=== PATIENT | female | born 1970 | race Caucasian/White ===

== ENCOUNTER 2016-05-21 19:28 | Observation (INO) | payer BC, OTHER ==
[~2016-05-21] VITALS: Ht 157.5 cm; Wt 79.0 kg
[2016-05-21] VITALS (12 sets, daily range): BP systolic 119–167; BP diastolic 67–89; PULSE 76–86; RESP 18–20; TEMP 98.3; O2SAT 96–99
[~2016-05-21 19:28] MED LIST: BACT PO; DIOV80TA4 PO; DOXY100T PO; OMEP20TA OR; VYTO10TA32 PO
[2016-05-21] MEDS ORDERED: ASPIRIN 81 MG CHEW TAB PO ONE (19:45)
[2016-05-21] MEDS ORDERED: PANTOPRAZOLE SODIUM 40 MG VIAL IV PUSH ONE (19:45)
[2016-05-21] MEDS ORDERED: SODIUM CHLORID 0.9% 500 ML INJ 500 ML IV ONE (19:45)
[2016-05-21] MEDS ORDERED: SODIUM CHLORIDE 0.9% FLUSH 5 ML FLUSH IVF PRN ×4 (19:45→21:30)
[2016-05-21] MEDS: NITROGLYCERIN 0.4 MG SL 25 TABS/BTL SL SCH ×3 (19:50→20:01)
[2016-05-21 20:01] LABS: AUTOMATED NEUTROPHIL # 6.9 TH/MM3 (1.8-7.7); BASOPHIL # 0.1 TH/MM3 (0-0.2); BASOPHIL % 0.5 % (0.0-2.0); EOSINOPHIL # 0.3 TH/MM3 (0-0.4); EOSINOPHIL % 2.7 % (0.0-4.0); HEMATOCRIT 37.4 % (35.0-46.0); HEMO FLAGS DIFF FINAL; LYMPH % 23.7 % (9.0-44.0); LYMPHOCYTE # 2.5 TH/MM3 (1.0-4.8); MEAN CELL VOLUME 77.4 FL (80.0-100.0); MEAN CORPUSCULAR HEMOGLOBIN 25.9 PG (27.0-34.0); MEAN CORPUSCULAR HGB CONC 33.5 % (32.0-36.0); MONO % 7.7 % (0.0-8.0); NEUT % 65.4 % (16.0-70.0); PLATELET COUNT 359 TH/MM3 (150-450); RED BLOOD COUNT 4.83 MIL/MM3 (4.00-5.30); RED CELL DISTRIBUTION WIDTH 14.4 % (11.6-17.2); WHITE BLOOD COUNT 10.6 TH/MM3 (4.0-11.0)
[2016-05-21 20:09] LABS: CHLORIDE 106 MEQ/L (98-107); POTASSIUM 3.9 MEQ/L (3.5-5.1); SODIUM (NA) 141 MEQ/L (136-145)
[2016-05-21 20:12] LABS: APTT (PATIENT) 24.3 SEC (24.3-30.1); PROTHROMBIN TIME - PATIENT 10.6 SEC (9.8-11.6)
[2016-05-21 20:13] LABS: ANION GAP 9 MEQ/L (5-15); BICARBONATE 26.4 MEQ/L (21.0-32.0); BLOOD UREA NITROGEN 15 MG/DL (7-18)
[2016-05-21 20:16] LABS: ALT (GPT) 24 U/L (10-53); AST (GOT) 14 U/L (15-37); GLOMERULAR FILTRATION RATE 78 ML/MIN (>89)
[2016-05-21 20:17] LABS: TOTAL BILIRUBIN ADULT 0.3 MG/DL (0.2-1.0)
[2016-05-21 20:19] LABS: ALKALINE PHOSPHATASE 151 U/L (45-117)
[2016-05-21 20:20] LABS: CREATINE KINASE 48 U/L (26-192)
--- NOTE | 2016-05-21 20:33 | RADHPO ---
EXAM DATE/TIME: 05/21/2016 20:15 [place] COMPARISON: No previous studies available for comparison. INDICATIONS : Chest pain. MEDICAL HISTORY : None. SURGICAL HISTORY : None. ENCOUNTER: Initial ACUITY: 2 days PAIN SCORE: 5/10 LOCATION: Bilateral chest FINDINGS: A single view of the chest demonstrates the lungs to be symmetrically aerated without evidence of mas s, infiltrate or effusion. The cardiomediastinal contours are unremarkable. Osseous structures are intact. CONCLUSION: No acute disease. Spike Estrella MD on May 21, 2016 at 20:32 Board Certified Radiologist. This report was verified electronically.
[2016-05-21] MEDS: SODIUM CHLOR 0.9% 1000 ML INJ 1,000 ML IV SCH (20:35)
[2016-05-21] MEDS ORDERED: ALPRAZolam 0.25 MG TAB PO PRN (21:15)
[2016-05-21] MEDS ORDERED: NITROGLYCERIN 0.4 MG SL 25 TABS/BTL SL PRN (21:15)
[2016-05-21] MEDS ORDERED: ONDANSETRON HCL 4 MG/2 ML VIAL IV PRN (21:15)
[2016-05-21] MEDS ORDERED: SIMV20TA PO (22:31)
[2016-05-21] MEDS ORDERED: DIOV40TA PO (22:31)
[2016-05-21] MEDS ORDERED: ZANT150T2 PO (22:32)
[2016-05-21] MEDS ORDERED: AMOX500C PO (22:32)
[2016-05-21] MEDS ORDERED: PANT40TA3 PO (22:32)
--- NOTE | 2016-05-21 23:24 | PD ---
HPI Chief Complaint: Chest Pain Time Seen by Provider: 19:40 Travel History International Travel<30 days: Yes Contact w/Intl Traveler<30days: Yes Name of Country Traveled to: [facility] cruise Traveled to known affect area: No History of Present Illness HPI 45-year-old female presents to the emergency department by private transportation for evaluation of retrosternal chest discomfort that is pressure- like and reminds her of indigestion. Patient has used multiple medications for indigestion without relief. Patient reports pressure as heavy. Patient states there is no pain. Patient rates discomfort as 5/10 in intensity. Patient has family history of cardiac disease premature onset in her father who at age 48 from myocardial infarction and mother with heart disease at age 70. Patient has history of CREST,Raynaud's syndrome, and scleroderma. Patient also has history of hypertension. Patient is followed by Dr. Heath her body masker as well as Dr. Slater her senior hardware engineer and primary care provider is Dr Bauman. Patient has had no recent long distance air travel protracted bedrest her surgical procedure but did recently returned home from a cruise on which she was very active. Patient denies any injury or fall. Patient denies any recent respiratory illness, fever, or shortness of breath. Pressure discomfort is not pleuritic in nature. Patient denies review his history of stress test. No report of lower extremity pain or swelling. No report of orthopnea or PND. PFSH Past Medical History Narrative Medical CREST, Raynaud's syndrome, scleroderma, dyslipidemia, hypertension, D&C, esophageal dilatation, dental surgery; no alcohol use no tobacco use no substance use; family history CAD; nursing notes reviewed Autoimmune Disease: Yes (SCLERADERMA, RAYNAUDS, crest syndrome) Cancer: No Cardiovascular Problems: Yes (mitral valve prolapse, slight murmur) Diabetes: No Glaucoma: No Hepatitis: No Hiatal Hernia: No Hypertension: Yes Medical other: Yes (reflux,SCLERODERMA,RAYNAUD'S,ELEVATED CHOLESTEROL) Respiratory: Yes (CHRONIC BRONCHITIS) Thyroid Disease: No Tetanus Vaccination: > 5 Years Influenza Vaccination: No ?: Unknown LMP: One week ago : 0 Dilation and Curettage (D&C): Yes (2009 due to thickened uterus lining. ) Past Surgical History Oral Surgery: Yes (wisdom teeth removed) Pacemaker: No Other Surgery: Yes (bilat hand surgery due to calcium deposits ) Social History Alcohol Use: No Tobacco Use: No Substance Use: No Allergies-Medications (Allergen,Severity, Reaction): Coded Allergies: Cipro (Unverified Allergy, Severe, hives, 05/21/16) Shrimp (Unverified Allergy, Severe, rash, 05/21/16) Tetanus Toxoid (Unverified Allergy, Severe, cellulitis, 05/21/16) Reported Meds & Prescriptions Reported Meds & Active Scripts Active Reported Zantac (Ranitidine HCl) 150 Mg Tab 150 Mg PO HS Amoxicillin 500 Mg Cap 500 Mg PO BID Pantoprazole (Pantoprazole Sodium) 40 Mg Tab 40 Mg PO DAILY Simvastatin 20 Mg Tab 20 Mg PO HS Diovan (Valsartan) 40 Mg Tab 40 Mg PO DAILY Review of Systems Except as stated in HPI: all other systems reviewed are Neg General / Constitutional: No: Fever, Chills HENT: No: Congestion Cardiovascular: Positive: Chest Pain or Discomfort Respiratory: No: Shortness of Breath Gastrointestinal: No: Nausea, Vomiting, Abdominal Pain, Loss of Appetite Genitourinary: No: Dysuria, Flank Pain Musculoskeletal: No: Myalgias, Arthralgias, Edema Skin: No Rash Neurologic: No: Weakness Psychiatric: Positive: Anxiety Hematologic/Lymphatic: No: Easy Bruising Physical Exam Narrative GENERAL: Well-developed well-nourished female in no acute distress no respiratory distress SKIN: Warm and dry. HEAD: Normocephalic. EYES: No scleral icterus. No injection or drainage. NECK: Supple, trachea midline. No JVD or lymphadenopathy. CARDIOVASCULAR: Regular rate and rhythm without murmurs, gallops, or rubs. Chest wall: Nontender to palpation RESPIRATORY: Breath sounds equal bilaterally. No accessory muscle use. GASTROINTESTINAL: Abdomen soft, non-tender, no guarding or rebound, nondistended. MUSCULOSKELETAL: No cyanosis, or edema. Dorsalis pedis pulses 2+ to palpation. BACK: Nontender without obvious deformity. No CVA tenderness. Data Data Last Documented VS Vital Signs Date Time Temp Pulse Resp B/P Pulse Ox O2 Delivery O2 Flow Rate FiO2 05/21/16 21:00 84 18 144/88 97 Room Air 05/21/16 19:35 98.3 Orders Electrocardiogram (05/21/16 19:41) Ckmb (Isoenzyme) Profile (05/21/16 19:41) Complete Blood Count With Diff (05/21/16 19:41) Comprehensive Metabolic Panel (05/21/16 19:41) Magnesium (Mg) (05/21/16 19:41) Prothrombin Time / Inr (Pt) (05/21/16 19:41) Act Partial Throm Time (Ptt) (05/21/16 19:41) Troponin I (05/21/16 19:41) Lipase (05/21/16 19:41) Chest, Single Ap (05/21/16 19:41) Ecg Monitoring (05/21/16 19:41) Bilateral Bp Monitoring (05/21/16 19:41) Iv Access Insert/Monitor (05/21/16 19:41) Oximetry (05/21/16 19:41) Oxygen Administration (05/21/16 19:41) Aspirin Chew (Aspirin Chew) (05/21/16 19:45) Sodium Chloride 0.9% Flush (Ns Flush) (05/21/16 19:45) Nitroglycerin Sl (Nitrostat Sl) (05/21/16 19:45) Sodium Chlorid 0.9% 500 Ml Inj (Ns 500 M (05/21/16 19:45) Sodium Chlor 0.9% 1000 Ml Inj (Ns 1000 M (05/21/16 19:45) Pantoprazole Inj (Protonix Inj) (05/21/16 19:45) Admit Order (Ed Use Only) (05/21/16 ) ^ Saline Lock (05/21/16 21:13) Resp Oxygen Rusty C Titrat 1-4 L (05/21/16 ) ^ Notify Dr: Other (05/21/16 21:13) Sodium Chloride 0.9% Flush (Ns Flush) (05/22/16 09:00) Sodium Chloride 0.9% Flush (Ns Flush) (05/21/16 21:15) Activity Bed Rest With Brp (05/21/16 21:13) Vital Signs (Adult) Q4H (05/21/16 21:13) Cardiac Rhythm .As Directed (05/21/16 21:13) ^ Notify Dr: Other .PRN (05/21/16 21:13) ^ Notify Dr. Parameters (05/21/16 21:13) Resp Oxygen Nasal Cannula (05/21/16 ) Ckmb (Isoenzyme) Profile (05/21/16 22:50) Ckmb (Isoenzyme) Profile (05/22/16 01:50) Troponin I (05/21/16 22:50) Troponin I (05/22/16 01:50) Electrocardiogram (05/21/16 22:50) Electrocardiogram (05/22/16 01:50) ^ Obtain (05/21/16 21:13) Sodium Chloride 0.9% Flush (Ns Flush) (05/21/16 21:15) Sodium Chloride 0.9% Flush (Ns Flush) (05/22/16 09:00) Ondansetron Inj (Zofran Inj) (05/21/16 21:15) Nitroglycerin Sl (Nitrostat Sl) (05/21/16 21:15) Alprazolam (Xanax) (05/21/16 21:15) Labs Laboratory Tests Test 05/21/16 19:50 White Blood Count 10.6 TH/MM3 Red Blood Count 4.83 MIL/MM3 Hemoglobin 12.5 GM/DL Hematocrit 37.4 % Mean Corpuscular Volume 77.4 FL Mean Corpuscular Hemoglobin 25.9 PG Mean Corpuscular Hemoglobin 33.5 % Concent Red Cell Distribution Width 14.4 % Platelet Count 359 TH/MM3 Mean Platelet Volume 8.1 FL Neutrophils (%) (Auto) 65.4 % Lymphocytes (%) (Auto) 23.7 % Monocytes (%) (Auto) 7.7 % Eosinophils (%) (Auto) 2.7 % Basophils (%) (Auto) 0.5 % Neutrophils # (Auto) 6.9 TH/MM3 Lymphocytes # (Auto) 2.5 TH/MM3 Monocytes # (Auto) 0.8 TH/MM3 Eosinophils # (Auto) 0.3 TH/MM3 Basophils # (Auto) 0.1 TH/MM3 CBC Comment DIFF FINAL Differential Comment Prothrombin Time 10.6 SEC Prothromb Time International 1.0 RATIO Ratio Activated Partial 24.3 SEC Thromboplast Time Sodium Level 141 MEQ/L Potassium Level 3.9 MEQ/L Chloride Level 106 MEQ/L Carbon Dioxide Level 26.4 MEQ/L Anion Gap 9 MEQ/L Blood Urea Nitrogen 15 MG/DL Creatinine 0.80 MG/DL Estimat Glomerular Filtration 78 ML/MIN Rate Random Glucose 101 MG/DL Calcium Level 8.8 MG/DL Magnesium Level 2.0 MG/DL Total Bilirubin 0.3 MG/DL Aspartate Amino Transf 14 U/L (AST/SGOT) Alanine Aminotransferase 24 U/L (ALT/SGPT) Alkaline Phosphatase 151 U/L Total Creatine Kinase 48 U/L Troponin I LESS THAN 0.02 NG/ML Total Protein 7.8 GM/DL Albumin 3.4 GM/DL Lipase 149 U/L MDM Medical Decision Making Medical Screen Exam Complete: Yes Emergency Medical Condition: Yes Medical Record Reviewed: Yes Interpretation(s) EKG normal sinus rhythm no acute ST elevation or injury pattern change artifact present at baseline Last Impressions Chest X-Ray 05/21/161940 Signed Impressions: Service Date/Time: Saturday, May 21, 2016 20:15 - CONCLUSION: No acute disease. Spike Estrella MD CBC with automated differential: Values grossly normal range Metabolic panel: Values grossly within normal limits except for alkaline phosphatase of 151 CK total within normal range, 48, not elevated; troponin I less than 0.02, not elevated Coagulation studies within normal limits Differential Diagnosis Chest pain, ACS, myocardial infarction, esophageal spasm, musculoskeletal pain, biliary colic, gastritis, peptic ulcer disease, PE Narrative Course Patient placed on cabinet worker IV access obtained specimens collected and sent for resulting patient administered aspirin and sublingual nitroglycerin EKG performed which reveals no acute ST elevation or acute injury pattern Chest pain improved after sublingual and twisted times one the patient refuses further nitroglycerin patient is aware of lab results and pain and discomfort have resolved completely patient reexamined remains nontender and the abdomen epigastric or right upper quadrant distribution chest wall nontender. No discomfort at this time 0 10 in intensity. He should is agreeable to observation admission for chest pain center protocol Physician Communication Physician Communication case discussed with percussion instrument tuner [facility] MD Dr Cortez --[facility] protocol Diagnosis Primary Impression: Chest pain Qualified Code: R07.2 - Precordial pain Admitting Information Admitting Physician Requests: Observation Raine Britt MD May 21, 2016 23:24
[2016-05-21 23:59] LABS: CREATINE KINASE 37 U/L (26-192)
[2016-05-22] VITALS: BP 138/84; PULSE 75; RESP 18; TEMP 97.8; O2SAT 97
[2016-05-22 02:00] VITALS: O2SAT 98
[2016-05-22 03:08] LABS: CREATINE KINASE 34 U/L (26-192)
[2016-05-22 04:00] VITALS: BP 126/78; PULSE 81; RESP 18; TEMP 96.9; O2SAT 98
[2016-05-22 08:05] VITALS: BP 134/100; PULSE 80; RESP 17; TEMP 97.1; O2SAT 97
[2016-05-22] MEDS: SODIUM CHLOR 0.9% 1000 ML INJ 1,000 ML IV SCH (08:05)
[2016-05-22] MEDS ORDERED: SODIUM CHLORIDE 0.9% FLUSH 5 ML FLUSH IVF SCH ×3 (09:00)
--- NOTE | 2016-05-22 09:04 | HHI.HP ---
cc: Elsa Bauman MD [facility] Service [facility] Primary Care Physician Elsa Bauman MD Admission Diagnosis chest pain Diagnoses: (1) Atypical chest pain Diagnosis: Principal Chief Complaint: chest discomfort Travel History International Travel<30 Days: Yes Contact w/Intl Traveler <30 Da: Yes Name of Country Traveled to: [facility] cruise Traveled to Known Affected Are: No History of Present Illness 45-year-old female with history of CREST syndrome, hyperlipidemia, hypertension , GERD, and mitral valve prolapse, and family h/o heart disease is admitted to chest pain center. She states that she had discomfort over the sternum which started at 1 PM on Friday. She states this occurred 1 hour after eating cold cuts, pasta salads, pickles. She states it felt like something was stuck sitting over the area, describing as a pressure, 3/10. She also states that she experiences burning and reflux. She tried to belch to relieve the discomfort but states she expresses a sharp pain with belching and it provided no relief. She additionally took Gas-X with no relief. She felt like she could not swallow although was able to. States the pain was constant lasting from initial onset until 7 PM last night (). She states she did experience some relief after medications in the ED which included nitroglycerin SL 1 and Protonix 40 mg IV. Patient denies having any diaphoresis, radiation of pain to the neck/jaw/arms, numbness or tingling, shortness of breath, nausea, or vomiting associated with the chest discomfort. Symptoms were not associated with exertion as she states she was lifting suitcases during this time period of discomfort without issue. She just admits to feeling achy all over currently but states it may be because she is tired. She has a headache from the nitroglycerin. The patient additionally states she was seen at an urgent care on and prescribed amoxicillin for possible strep throat. The patient states the practitioner told her she had a very red throat and her ears were filled with fluid. She admits to nasal congestion, but denies any current sore throat. She states she did have lymph node enlargement in the neck. Denies any cough. She additionally states she had some nausea and diarrhea prior to the cruise she went on which is now resolved. She states she has had normal BMs since. Denies any hematochezia or melena. Patient was a patient of [facility], in the past and has undergone esophageal dilatation. She states he no longer takes her insurance so she saw Dr. Kemp in in April 2016 who stated he wanted to perform an EGD. She additionally follows with Dr. Heath, arm maker. She most recently saw Dr. Heath in April 2016. She states that she had an Echo in March 2015 and Holter monitor in October 2015. She had a nuclear tread stress test performed 8-9 years ago in [place] which was normal. Patient states she was advised not to take aspirin at home per her arm maker due to her stomach issues. Per patient Hemoglobin A1c August 2015 6.1 down from 6.4 in 2014. Review of Systems Constitutional: DENIES: Diaphoretic episodes Eyes: DENIES: Blurred vision Ears, nose, mouth, throat: COMPLAINS OF: Throat pain Respiratory: DENIES: Cough, Shortness of breath Cardiovascular: COMPLAINS OF: Chest pain Gastrointestinal: COMPLAINS OF: Difficulty Swallowing, DENIES: Black stools, Bloody stools, Diarrhea, Nausea, Vomiting Genitourinary: DENIES: Dysuria Musculoskeletal: COMPLAINS OF: Muscle aches, DENIES: Neck pain Integumentary: DENIES: Rash Hematologic/lymphatic: COMPLAINS OF: Lymphadenopathy Neurologic: COMPLAINS OF: Headache, DENIES: Paresthesias Past Family Social History Past Medical History CREST syndrome Mitral valve prolapse Hyperlipidemia Hypertension Past Surgical History Esophageal dilatation D&C due to thickened uterus lining Calcium deposit removal bilateral hands [place] teeth removal Reported Medications Zantac (Ranitidine HCl) 150 Mg Tab 150 Mg PO HS Amoxicillin 500 Mg Cap 500 Mg PO BID Pantoprazole (Pantoprazole Sodium) 40 Mg Tab 40 Mg PO DAILY Simvastatin 20 Mg Tab 20 Mg PO HS Diovan (Valsartan) 40 Mg Tab 40 Mg PO DAILY Allergies: Coded Allergies: Cipro (Unverified Allergy, Severe, hives, 05/21/16) Shrimp (Unverified Allergy, Severe, rash, 05/21/16) Tetanus Toxoid (Unverified Allergy, Severe, cellulitis, 05/21/16) Family History Father: of pulmonary embolus at age 64; thyroid and lung cancer; multiple MIs with first at age 48, multiple CVAs. Mother: [place] at age 71, [place]. Social History Denies history of cigarette smoking. Denies alcohol use. Denies history of illicit drug use. Physical Exam Vital Signs Vital Signs Date Time Temp Pulse Resp B/P Pulse Ox O2 Delivery O2 Flow Rate FiO2 05/22/16 04:00 96.9 81 18 126/78 98 05/22/16 02:00 98 21 05/22/16 00:00 97.8 75 18 138/84 97 05/21/16 23:56 77 05/21/16 23:20 81 18 137/88 99 05/21/16 22:30 80 18 127/88 98 Room Air 05/21/16 21:30 80 18 128/79 97 Room Air 05/21/16 21:00 84 18 144/88 97 Room Air 05/21/16 20:30 76 18 131/78 96 Room Air 05/21/16 20:15 80 18 125/70 97 Room Air 05/21/16 20:06 83 18 137/80 97 Room Air 05/21/16 20:00 82 20 99 Room Air 05/21/16 20:00 85 18 143/72 99 Room Air 05/21/16 19:45 79 20 138/89 98 Room Air 119/67 05/21/16 19:35 98.3 86 18 167/86 99 05/21/16 19:30 99 Room Air 05/21/16 19:30 99 Room Air Physical Exam GENERAL: This is a very pleasant well-nourished, well-developed patient, in no apparent distress. SKIN: No rashes, ecchymoses or lesions. HEAD: Atraumatic. Normocephalic. EYES: No scleral icterus. No injection or drainage. ENT: Throat without erythema, tonsillar hypertrophy or exudate. Uvula midline. Airway patent. NECK: Trachea midline. No lymphadenopathy. CARDIOVASCULAR: Regular rate and rhythm without audible murmur. RESPIRATORY: Clear to auscultation. Breath sounds equal bilaterally. No wheezes , rales, or rhonchi. GASTROINTESTINAL: Abdomen soft, non-tender, nondistended. No guarding. MUSCULOSKELETAL: No lower extremity edema bilaterally. NEUROLOGICAL: Awake and alert. Motor grossly within normal limits. Five out of 5 muscle strength in bilateral arms and legs. Normal speech. Laboratory Laboratory Tests Test 05/21/16 05/21/16 05/22/16 19:50 23:00 02:00 White Blood Count 10.6 Red Blood Count 4.83 Hemoglobin 12.5 Hematocrit 37.4 Mean Corpuscular Volume 77.4 Mean Corpuscular Hemoglobin 25.9 Mean Corpuscular Hemoglobin 33.5 Concent Red Cell Distribution Width 14.4 Platelet Count 359 Mean Platelet Volume 8.1 Neutrophils (%) (Auto) 65.4 Lymphocytes (%) (Auto) 23.7 Monocytes (%) (Auto) 7.7 Eosinophils (%) (Auto) 2.7 Basophils (%) (Auto) 0.5 Neutrophils # (Auto) 6.9 Lymphocytes # (Auto) 2.5 Monocytes # (Auto) 0.8 Eosinophils # (Auto) 0.3 Basophils # (Auto) 0.1 CBC Comment DIFF FINAL Differential Comment Prothrombin Time 10.6 Prothromb Time International 1.0 Ratio Activated Partial 24.3 Thromboplast Time Sodium Level 141 Potassium Level 3.9 Chloride Level 106 Carbon Dioxide Level 26.4 Anion Gap 9 Blood Urea Nitrogen 15 Creatinine 0.80 Estimat Glomerular Filtration 78 Rate Random Glucose 101 Calcium Level 8.8 Magnesium Level 2.0 Total Bilirubin 0.3 Aspartate Amino Transf 14 (AST/SGOT) Alanine Aminotransferase 24 (ALT/SGPT) Alkaline Phosphatase 151 Total Creatine Kinase 48 37 34 Troponin I LESS THAN 0.02 LESS THAN 0.02 LESS THAN 0.02 Total Protein 7.8 Albumin 3.4 Lipase 149 Result Diagram: 05/21/16194905/21/161949 Imaging Last Impressions Chest X-Ray 05/21/161940 Signed Impressions: Service Date/Time: Saturday, May 21, 2016 20:15 - CONCLUSION: No acute disease. Spike Estrella MD Assessment and Plan Assessment and Plan 45-year-old female with: Atypical chest pain: Started one hour after eating on Friday and was constant until 7 PM Friday night. Patient additionally felt like she had some trouble swallowing although was able to. Troponin 3 less than 0.02. EKGs 3 personally interpreted with NSR and no evidence of ischemia. CBC and BMP reviewed and relatively unremarkable. Chest x-ray personally reviewed without acute disease. Patient's BP was elevated 167/86 on arrival but has improved since. -Patient received 162 mg of aspirin and 0.4 mg subungual nitroglycerin in ED -I spoke with Dr. Yolanda Heath, the patient's arm maker, who agrees the pain appears GI related and is aware of patient's h/o dysphagia and esophageal dilatation. She states the patient can be sent home. -I instructed the patient to follow up with GI as she is supposed to undergo an EGD. Patient is to continue her home Zantac and Protonix. Hypertension: Improved. Continue Diovan. Hyperlipidemia: Continue Simvastatin. Patient was prescribed 10 day course of amoxicillin for presumed strep throat. Throat appears normal at this time but patient is advised she can finish out the amoxicillin. DVT prevention: Early ambulation. Discharge disposition: Home in stable condition Medications: Per med rec. Continue home meds. Diet: Heart healthy, GERD. Activity: Regular Follow-up: PCP and GI 1 week Discussed Condition With Dr. Heath, arm maker and Dr. Garcia, attending. Kaley Senoir May 22, 2016 09:04 Idalia Garcia MD May 22, 2016 12:41
--- NOTE | 2016-05-22 10:39 | HHI.DCPOC ---
Discharge Care Plan Diagnosis: (1) Atypical chest pain Your Health Problems Are: Difficulty to Swallow Chest Pain Goals to Promote Your Health * To prevent worsening of your condition and complications * To maintain your health at the optimal level Directions to Meet Your Goals Take your medications as prescribed Follow your dietary instruction Follow activity as directed Keep your appointments as scheduled Take your immunizations and boosters as scheduled If your symptoms worsen call your PCP, if no PCP go to Urgent Care Center or Emergency Room Smoking is Dangerous to Your Health. Avoid second hand smoke Call the 24-hour hour crisis hotline for domestic abuse at Kaley Senior May 22, 2016 10:38 Idalia Garcia MD May 22, 2016 12:42
[2016-05-22] MEDS ORDERED: PANTOPRAZOLE SOD 40 MG DELAYED RELEASE TAB PO SCH (10:45)
[2016-05-22] MEDS ORDERED: AMOXICILLIN (TRIHYDRATE) 500 MG CAP PO SCH (10:45)
[2016-05-22] MEDS ORDERED: VALSARTAN 40 MG TAB PO SCH (10:45)
--- NOTE | 2016-05-22 11:19 | EKG ---
Date Performed: 05/22/2016 Time Performed: 02:01:00 PTAGE: 45 years EKG: Sinus rhythm Low QRS voltages in precordial leads Borderline ECG PREVIOUS TRACING : 05/21/2016 22.47 Compared to prior tracing no significant change DOCTOR: Luis M Armijo Interpretating Date/Time 05/22/2016 11:18:42
[2016-05-22] MEDS ORDERED: PRAVASTATIN SOD 40 MG TAB PO SCH (21:00)
[2016-05-22] MEDS ORDERED: FAMOTIDINE 20 MG TAB PO SCH (21:00)
--- NOTE | 2016-05-22 22:32 | EKG ---
Date Performed: 05/21/2016 Time Performed: 22:47:36 PTAGE: 45 years EKG: Sinus rhythm Anterior T wave changes are nonspecific Low QRS voltages in precordial leads Borderline ECG PREVIOUS TRACING : 05/21/2016 19.30 Compared to prior tracing no significant change DOCTOR: Luis M Armijo Interpretating Date/Time 05/22/2016 22:29:07
--- NOTE | 2016-05-22 22:37 | EKG ---
Date Performed: 05/21/2016 Time Performed: 19:30:00 PTAGE: 45 years EKG: Sinus rhythm . Inferior and anterior T wave changes are nonspecific Low QRS voltages in precordial leads Borderlin e ECG NO PREVIOUS TRACING DOCTOR: Luis M Armijo Interpretating Date/Time 05/22/2016 22:34:37
== END 2016-05-22 12:41 | disposition home or self-care (01) ==
LOC: PHED 19:28 → PHEDA 21:15 → PH3A 23:20
PROVIDERS: ADMIT Hospitalist; ATTEND Hospitalist
DX: R07.2 Precordial pain (principal); M34.1 CR(E)ST syndrome; I10 Essential (primary) hypertension; I34.1 Nonrheumatic mitral (valve) prolapse; E78.5 Hyperlipidemia, unspecified; K21.9 Gastro-esophageal reflux disease without esophagitis; E78.00 Pure hypercholesterolemia, unspecified; Z82.49 Family history of ischemic heart disease and other diseases of the circulatory system
CPT/HCPCS: 71010; 80053; 82550; 83690; 83735; 84484; 85025; 85610; 85730; 93005; 96361; 96374; 99285; C9113; G0378; J7030; J7040